=== PATIENT | female | born 1985 | race Caucasian/White ===

== ENCOUNTER 2019-08-22 20:00 | Emergency (ER) | payer OTHER, MEDICAID, SELFPAY ==
[2019-08-22 20:09] VITALS: BP 125/82; PULSE 82; RESP 14; TEMP 36.7; O2SAT 100; BMI 22.6
[2019-08-22 20:39] LABS: Add Manual Diff / Slide Review NO; Basophils Absolute Auto 100 /uL (0-100); Basophils Percent Auto 1.1 % (0-2); Eosinophils Absolute Auto 300 /uL (0-450); Eosinophils Percent Auto 4.5 % (2-4); Hematocrit 37.3 % (36-46); Hemoglobin 12.6 g/dL (12.0-16.0); Lymphocytes Absolute Auto 1300 /uL (1100-4500); Lymphocytes Percent Auto 17.7 % (25-40); Mean Corpuscular HGB Conc 33.9 % (30-36); Mean Corpuscular Hemoglobin 29.7 PG (26-34); Mean Corpuscular Volume 87.6 fL (80-100); Monocytes Absolute Auto 400 /uL (0-900); Monocytes Percent Auto 5.7 % (3-14); Neutrophils Absolute Auto 5100 /uL (1500-7000); Platelet Count 323 X10^3/uL (150-400); Red Blood Cell Count 4.26 X10^6/uL (4.0-5.2); Red Cell Distribution Width 13.1 % (11.6-14.8); White Blood Cell Count 7.2 X10^3/uL (4.5-11.0)
--- NOTE | 2019-08-22 20:48 | ED.HA ---
HPI - Headache General Chief Complaint: Headache Stated Complaint: Severe head ache, vomiting Time Seen by Provider: 08/22/19 20:48 Mode of arrival: Ambulatory History of Present Illness HPI Narrative: 33-year-old woman with bipolar disorder and seizure disorder presents with increased headache with acute onset at approximately 7:00 p.m. tonight. She states that usually she gets headaches only before or after seizures. She describes the headache as a dull continuous ache on the left side of her head She isn't sure if she has actually had any seizures this evening but is wondering if there may have been some of signs seizures. She currently is on 150 mg of lamotrigine in the evening. She does not describe photophobia, nausea, fevers, coughs, chills, chest pain, shortness of breath, diarrhea, vomiting, skin changes or rashes Related Data Home Medications Medication Instructions Recorded Confirmed ibuprofen 200 mg tablet 200 mg PO QID PRN 04/07/18 05/20/18 lamotrigine 150 mg tablet 150 mg PO BID 04/07/18 08/22/19 levothyroxine 75 mcg capsule 75 mcg PO DAILY 04/07/18 08/22/19 lithium carbonate 300 mg tablet 300 mg PO QID tab 04/07/18 08/22/19 trazodone 50 mg tablet 50 mg PO DAILY 04/07/18 08/22/19 Previous Rx's Medication Instructions Recorded norethindrone (contraceptive) 0.35 0.35 mg PO DAILY #112 tab 05/22/18 mg tablet lamotrigine 50 mg PO BID #60 tab 08/22/19 Allergies Allergy/AdvReac Type Severity Reaction Status Date / Time Pertussis Vaccines Allergy Verified 08/22/19 20:17 pseudoephedrine AdvReac Verified 08/22/19 20:17 [From [facility]] Review of Systems Review of Systems Narrative: All systems reviewed and are unremarkable except as noted in HPI and below Patient History Medical History (Updated 08/22/19 @ 23:05 by Elizabeth Dougherty MD) Seizure disorder (Acute) Social History Smoking Status: Never smoker Smoking Status: Never smoker alcohol intake frequency: 0-2 drinks per day Substance Use Type: does not use Exam Narrative Exam Narrative: General: Healthy appearing, in no acute distress. Able to give a complete and coherent history. Well-nourished well-developed HEENT: Moist mucous membranes, normal sclera with reactive pupils, Neck: No JVD, supple Respiratory: Lungs are clear to auscultation, no wheezing no rales no rhonchi. Full and symmetrical air movement Cardiac: Regular rate and rhythm no murmurs no bruits Abdomen: Soft nontender good bowel tones, no flank pain Skin: Warm and dry, no rashes Neurologic: Grossly neurologically intact with no obvious asymmetries or abnormalities. Very brisk reflexes arms patellas with 1 beat of clonus bilaterally both lower extremities Extremities: No trauma, well perfused Psych: Cooperative, appropriate insight and affect Initial Vital Signs Initial Vital Signs: Vital Signs Temperature 98.1 F 08/22/19 20:09 Pulse Rate 82 08/22/19 20:09 Respiratory Rate 14 08/22/19 20:09 Blood Pressure 125/82 08/22/19 20:09 Pulse Oximetry 100 08/22/19 20:09 Course Orders Ordered: ED Orders 08/22/19 20:13 EKG-12 Lead Routine 08/22/19 20:27 Basic Metabolic Panel Stat Complete Blood Count AUTO DIFF Stat Influenza A & B (PCR) Stat Discontinued Medications Sodium Chloride (Normal Saline 0.9%) 1,000 mls @ 1,000 mls/hr IV BOLUS ONE Stop: 08/22/19 22:07 Last Infusion: 08/22/19 22:37 Dose: 0 mls/hr Documented by: Admin: 08/22/19 21:22 Dose: 1,000 mls/hr Documented by: SHANTELLE Ketorolac Tromethamine (Toradol) 15 mg IV NOW ONE Stop: 08/22/19 21:09 Last Admin: 08/22/19 21:22 Dose: 15 mg Documented by: SHANTELLE Phenobarbital (Phenobarbital) 65 mg IV NOW ONE Stop: 08/22/19 21:09 Last Admin: 08/22/19 21:22 Dose: 65 mg Documented by: SHANTELLE Vital Signs Vital signs: Vital Signs - 8 hr 08/22/19 20:09 08/22/19 21:00 08/22/19 22:01 Temperature 98.1 F Pulse Rate 82 73 76 Respiratory Rate 14 15 14 Blood Pressure 125/82 Blood Pressure [Right Arm] 125/83 125/76 Pulse Oximetry 100 100 100 08/22/19 22:27 08/22/19 22:40 Temperature Pulse Rate 71 77 Respiratory Rate 13 24 Blood Pressure Blood Pressure [Right Arm] 124/72 120/69 Pulse Oximetry 100 100 MDM - Headache Differential Diagnosis Differential diagnosis: Likely migraine, tension headache and other Medical Records Attestation: I reviewed the patient's medical records. Lab Data Attestation: I reviewed the patient's lab results. Result diagrams: 08/22/19 20:27 08/22/19 20:27 Labs: Lab Results 08/22/19 08/22/19 08/22/19 Range/Units 20:27 20:27 20:27 WBC 7.2 (4.5-11.0) X10^3/uL RBC 4.26 (4.0-5.2) X10^6/uL Hgb 12.6 (12.0-16.0) g/dL Hct 37.3 (36-46) % MCV 87.6 (80-100) fL MCH 29.7 (26-34) PG MCHC 33.9 (30-36) % RDW 13.1 (11.6-14.8) % Plt Count 323 (150-400) X10^3/uL Neut % (Auto) 71.0 (50-75) % Lymph % (Auto) 17.7 L (25-40) % [place] % (Auto) 5.7 (3-14) % Eos % (Auto) 4.5 H (2-4) % Baso % (Auto) 1.1 (0-2) % Neut # (Auto) 5100 (2316-7776) /uL Lymph # (Auto) 1300 (8666-2634) /uL [place] # (Auto) 400 (0-900) /uL Eos # (Auto) 300 (0-450) /uL Baso # (Auto) 100 (0-100) /uL Sodium 141 (137-145) mmol/L Potassium 3.6 (3.4-5.1) mmol/L Chloride 107 (98-107) mmol/L Carbon Dioxide 24 (22-32) mmol/L BUN 12 (7-17) mg/dL Creatinine 0.90 (0.52-1.04) mg/dL Estimated GFR > 60.0 (>60) mL/min BUN/Creatinine Ratio 13.3 (6-22) Glucose 113 H (70-100) mg/dL Calcium 9.7 (8.4-10.2) mg/dL Influenza A (RT-PCR) Flu a negative (NEGATIVE) Influenza B (RT-PCR) Flu b negative (NEGATIVE) ECG Data Attestation: I personally reviewed and interpreted this ECG as follows: Interpretation: Normal sinus rhythm at a rate of 74. Normal axis, normal intervals, no acute ischemia MDM Narrative Medical decision making narrative: Presents with headache that resolved nicely with Toradol as well as phenobarbital. Increasing reflexive in the and possibility of absent seizures over the course of this evening. Will increase her lamotrigine to 200 mg in the evening and have her follow-up with her primary care physician. There is no evidence of meningitis nor acute life-threatening illness. She is safe for home discharge Discharge Plan Departure Patient Disposition: Home Clinical Impression: Seizure disorder Headache Qualifiers: Headache type: unspecified Headache chronicity pattern: acute headache Intractability: not intractable Qualified Code(s): R51 - Headache Instructions: DI for Seizure Disorder -- Adult Activity Restrictions/Additional Instructions: Thank you for coming in today Your lab work was reassuringly normal. Your headache improved with Toradol, phenobarbital and normal saline. you still have very brisk reflexes and I suspect that your headache is related to mild seizure activity. I am going to suggest that we increase your lamotrigine to a total of 200 mg a day. I have given you a prescription for the 50 mg size pills. Please add the 50 mg size pill to your current 150 mg size pills. A prescription has been electronically sent to [facility] in [place] If you're having recurrence symptoms or problems please feel free to return to the emergency department. With a change like this to your baseline medications it's very important that you follow-up with your primary care physician within the next month to make sure that this slight increased dose to lamotrigine is effective and appropriate. I wish you the best. Prescriptions: New lamotrigine 50 mg tablet,disintegrating 50 mg PO BID Qty: 60 RF: 0 No Action norethindrone (contraceptive) [Ortho Micronor] 0.35 mg tablet 0.35 mg PO DAILY Qty: 112 RF: 4 lamotrigine 150 mg tablet 150 mg PO BID RF: 0 trazodone 50 mg tablet 50 mg PO DAILY RF: 0 ibuprofen [IBU-200] 200 mg tablet 200 mg PO QID PRNRF: 0 lithium carbonate 300 mg tablet 300 mg PO QID RF: 0 levothyroxine 75 mcg capsule 75 mcg PO DAILY RF: 0
[2019-08-22 20:49] LABS: BUN Creatinine Ratio 13.3 (6-22); Blood Urea Nitrogen 12 mg/dL (7-17); Calcium 9.7 mg/dL (8.4-10.2); Carbon Dioxide 24 mmol/L (22-32); Chloride 107 mmol/L (98-107); Estimated Glomerular Filt Rate > 60.0 mL/min (>60); Glucose 113 mg/dL (70-100); HEMOLYSIS < 15 (0-50); Potassium 3.6 mmol/L (3.4-5.1); Sodium 141 mmol/L (137-145)
[2019-08-22 21:00] VITALS: BP 125/83; PULSE 73; RESP 15; O2SAT 100
[2019-08-22 21:09] LABS: Influenza A - CEPHEID Flu A NEGATIVE (NEGATIVE); Influenza B - CEPHEID Flu B NEGATIVE (NEGATIVE)
[2019-08-22] MEDS: KETOROLAC 60 MG/2 ML VIAL 15 MG IV (21:22)
[2019-08-22] MEDS: PHENobarbital 65 MG/ML VIAL IV (21:22)
[2019-08-22] MEDS: SODIUM CHLORIDE 0.9% 1,000 ML 1000 ML IV (21:22)
[2019-08-22 22:01] VITALS: BP 125/76; PULSE 76; RESP 14; O2SAT 100
[2019-08-22 22:27] VITALS: BP 124/72; PULSE 71; RESP 13; O2SAT 100
[2019-08-22 22:40] VITALS: BP 120/69; PULSE 77; RESP 24; O2SAT 100
== END 2019-08-22 23:20 | disposition home or self-care (01) ==
PROVIDERS: Emergency Provider Emergency Medicine
DX: G40.909 Epilepsy, unspecified, not intractable, without status epilepticus (principal); R51 Headache
CPT/HCPCS: 36415; 80048; 85025; 87502; 93005; 96361; 96374; 96375; 99284; J1885; J2560

== ENCOUNTER 2019-09-26 19:41 | Emergency (ER) | payer OTHER, MEDICAID, SELFPAY ==
[2019-09-26 19:50] VITALS: BP 135/79; PULSE 70; RESP 14; TEMP 36.9; O2SAT 99; BMI 23.2
[2019-09-26] MEDS: SODIUM CHLORIDE 0.9% 1,000 ML 1000 ML IV (20:49)
[2019-09-26] MEDS: METOCLOPRAMIDE 10 MG/2 ML INJ IV (20:49)
[2019-09-26] MEDS: diphenhydrAMINE 50 MG/ML VIAL 25 MG IV (20:49)
[2019-09-26] MEDS: KETOROLAC 60 MG/2 ML VIAL 30 MG IV (20:49)
--- NOTE | 2019-09-26 20:56 | ED.HA ---
HPI - Headache <ANAM Petersen - Last Filed: 09/27/19 00:12> General Chief Complaint: Headache Stated Complaint: feels like she is about to have a seizure Time Seen by Provider: 09/26/19 19:45 Mode of arrival: Ambulatory Limitations: no limitations History of Present Illness HPI Narrative: This is a 34-year-old female, nonsmoker, who presents to ED with father with chief complain of I am about to have a seizure or just had one. Patient reports her symptoms as nausea, headache, difficulty focusing mentally which she started about at 3:45 p.m.. Patient's seizure trigger is usually a stress but it has not been to bed. Patient currently takes lamotrigine 150 mg twice a day, lithium 1200 mg q.p.m. patient states she has been compliant with her medications and finally has an approved referral to neurologist at [facility] and is in process of making a phone call to make an appointment. Patient denies fever, chills, nausea, vomiting, recent illness or cold symptoms. Patient reports last big seizure activity was on 08/21/2019 and she had similar symptoms such as headache, nausea, light sensitivity, phonophobia. 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 Related Data Home Medications Medication Instructions Recorded Confirmed ibuprofen 200 mg tablet 200 mg PO QID PRN 04/07/18 05/20/18 lamotrigine 150 mg tablet 150 mg PO BID 04/07/18 08/22/19 levothyroxine 75 mcg capsule 75 mcg PO DAILY 04/07/18 08/22/19 lithium carbonate 300 mg tablet 300 mg PO QID tab 04/07/18 08/22/19 trazodone 50 mg tablet 50 mg PO DAILY 04/07/18 08/22/19 Previous Rx's Medication Instructions Recorded norethindrone (contraceptive) 0.35 0.35 mg PO DAILY #112 tab 05/22/18 mg tablet lamotrigine 50 mg PO BID #60 tab 08/22/19 Allergies Allergy/AdvReac Type Severity Reaction Status Date / Time Pertussis Vaccines Allergy Verified 08/22/19 20:17 metoclopramide [From Reglan] AdvReac Shakiness Verified 09/26/19 21:18 pseudoephedrine AdvReac Verified 08/22/19 20:17 [From [facility]] Review of Systems <Liam RitchieANAM Miller - Last Filed: 09/27/19 00:12> Review of Systems Narrative: General: Denies fever, chills, fatigue, malaise, sweats. HEENT: Denies sinus pain, ear pain, sore throat, difficulty swallowing, dizziness. Respiratory: Denies dyspnea, cough, wheezing, hemoptysis, sputum. Cardiovascular: Denies chest pain, palpitations, orthopnea, edema. Gastrointestinal: Denies nausea, vomiting, abdominal pain, diarrhea, constipation, melena. : Denies dysuria, frequency, incontinence, hematuria, urinary retention. Musculoskeletal: Denies weakness, joint pain or bony pain. Skin: Denies rash, skin lesions, or other. Neurologic: See HPI Psychiatric: No concerning psychosocial issues. 12-point review of systems is negative except for those stated above. Patient History <Liam RitchieJosephANAM Rhodes - Last Filed: 09/27/19 00:12> Medical History (Updated 09/26/19 @ 22:20 by Jillian Rodriguez RN) Seizure disorder (Inactive) Surgical History (Updated 09/26/19 @ 21:02 by ANAM Petersen) H/O foot surgery (Acute) H/O: hysterectomy (Acute) Social History Smoking Status: Never smoker Smoking Status: Never smoker alcohol intake frequency: 0-2 drinks per day Substance Use Type: does not use Exam <ANAM Petersen - Last Filed: 09/27/19 00:12> Narrative Exam Narrative: GEN: Alert, oriented x 3, well appearing and nourished, and in no acute distress. Head: Normal cephalic, atraumatic. No scalp or temporal tenderness, palpable mass or rash. EYES: Pupils are equal, round, and reactive to light and accommodation. Extraocular muscles are intact bilaterally. There is no subconjunctival hemorrhage, exudate and sclera non-icteric. ENT: Bilateral auditory canals and tympanic membranes clear. Hearing grossly intact. Nose without bleeding, purulent discharge or deviation. Facial sinuses nontender to palpate. Mucous membrane moist, no mucosal lesion. Throat without erythema, tonsillar hypertrophy or exudate. Uvula in midline, airway patent. Neck: Trachea in midline. No JVD, non-tender without lymphadenopathy. No masses or thyroid megaly. Supple, non-tender and no meningeal signs. CARDIAC: Normal regular rate and rhythm without murmurs, gallops, or rubs. No chest wall tenderness. No peripheral edema, cyanosis or pallor. Capillary refill is less than 2 seconds. RESPIRATORY: Lungs are clear to auscultate bilaterally. No cough, wheezes, rales, or rhonchi. No stridor, respiratory distress, increase work of breathing, or accessary muscle used. ABD: Abdomen soft, nontender and non-distended. No guarding or rebound tenderness to palpate. Bowel sounds are normal in all 4 quadrants. There is no palpable masses or organomegaly. EXT: Full painless ROM of all extremities with no loss of sensation, strength, effusion or edema. SKIN: Warm, dry, normal color for patient. No erythema, lesions or rash over visible areas. BACK: Nontender without deformity or crepitance. No flank tenderness. NEUROLOGICAL: Alert and oriented to place, time and person. Sensation and motor function intact bilaterally. No facial droops, dysphasia. PSYCHIATRIC: Good judgement and reason, without hallucinations, abnormal affect or abnormal behaviors during the examination. Patient is not suicidal. Initial Vital Signs Initial Vital Signs: Vital Signs Temperature 98.5 F 09/26/19 19:50 Pulse Rate 70 09/26/19 19:50 Respiratory Rate 14 09/26/19 19:50 Blood Pressure 135/79 09/26/19 19:50 Pulse Oximetry 99 09/26/19 19:50 <Jefe Saez MD - Last Filed: 09/27/19 06:51> Initial Vital Signs Initial Vital Signs: Vital Signs Temperature 98.5 F 09/26/19 19:50 Pulse Rate 70 09/26/19 19:50 Respiratory Rate 14 09/26/19 19:50 Blood Pressure 135/79 09/26/19 19:50 Pulse Oximetry 99 09/26/19 19:50 Scores <ANAM Petersen - Last Filed: 09/27/19 00:12> GCS [place] coma scale eye opening: Spontaneous Gilda coma scale verbal response: Orientated [place] coma scale motor response: Obey commands [place] coma scale total score: 15 Course <ANAM Petersen - Last Filed: 09/27/19 00:12> Orders Ordered: Discontinued Medications Diphenhydramine HCl (Benadryl) 25 mg IV NOW ONE Stop: 09/26/19 20:07 Last Admin: 09/26/19 20:49 Dose: 25 mg Documented by: INNA Diphenhydramine HCl (Benadryl) 25 mg IV NOW ONE Stop: 09/26/19 21:12 Last Admin: 09/26/19 21:16 Dose: Not Given Documented by: CARLOS Sodium Chloride (Normal Saline 0.9%) 1,000 mls @ 1,000 mls/hr IV BOLUS ONE Stop: 09/26/19 21:05 Last Infusion: 09/26/19 22:19 Dose: 0 mls/hr Documented by: Admin: 09/26/19 20:49 Dose: 1,000 mls/hr Documented by: INNA Ketorolac Tromethamine (Toradol) 30 mg IV NOW ONE Stop: 09/26/19 20:07 Last Admin: 09/26/19 20:49 Dose: 30 mg Documented by: INNA Lorazepam (Ativan) 0.5 mg IV NOW ONE Stop: 09/26/19 21:22 Last Admin: 09/26/19 22:14 Dose: Not Given Documented by: CARLOS Metoclopramide HCl (Reglan) 10 mg IV NOW ONE Stop: 09/26/19 20:07 Last Admin: 09/26/19 20:49 Dose: 10 mg Documented by: INNA Vital Signs Vital signs: Vital Signs - 8 hr 09/26/19 19:50 09/26/19 21:05 09/26/19 21:30 Temperature 98.5 F Pulse Rate 70 94 H 72 Respiratory Rate 14 18 16 Blood Pressure 135/79 Blood Pressure [Left Arm] 122/73 122/73 Pulse Oximetry 99 99 99 <Jefe Saez MD - Last Filed: 09/27/19 06:51> Orders Ordered: Discontinued Medications Diphenhydramine HCl (Benadryl) 25 mg IV NOW ONE Stop: 09/26/19 20:07 Last Admin: 09/26/19 20:49 Dose: 25 mg Documented by: INNA Diphenhydramine HCl (Benadryl) 25 mg IV NOW ONE Stop: 09/26/19 21:12 Last Admin: 09/26/19 21:16 Dose: Not Given Documented by: CARLOS Sodium Chloride (Normal Saline 0.9%) 1,000 mls @ 1,000 mls/hr IV BOLUS ONE Stop: 09/26/19 21:05 Last Infusion: 09/26/19 22:19 Dose: 0 mls/hr Documented by: Admin: 09/26/19 20:49 Dose: 1,000 mls/hr Documented by: INNA Ketorolac Tromethamine (Toradol) 30 mg IV NOW ONE Stop: 09/26/19 20:07 Last Admin: 09/26/19 20:49 Dose: 30 mg Documented by: INNA Lorazepam (Ativan) 0.5 mg IV NOW ONE Stop: 09/26/19 21:22 Last Admin: 09/26/19 22:14 Dose: Not Given Documented by: CARLOS Metoclopramide HCl (Reglan) 10 mg IV NOW ONE Stop: 09/26/19 20:07 Last Admin: 09/26/19 20:49 Dose: 10 mg Documented by: INNA Vital Signs Vital signs: Vital Signs - 8 hr 09/26/19 19:50 09/26/19 21:05 09/26/19 21:30 Temperature 98.5 F Pulse Rate 70 94 H 72 Respiratory Rate 14 18 16 Blood Pressure 135/79 Blood Pressure [Left Arm] 122/73 122/73 Pulse Oximetry 99 99 99 MDM - Headache <ANAM Petersen - Last Filed: 09/27/19 00:12> Differential Diagnosis Differential diagnosis: Likely headache and other (seizure) Medical Records Attestation: I reviewed the patient's medical records. Lab Data Attestation: I reviewed the patient's lab results. Result diagrams: 09/26/19 20:50 09/26/19 20:50 Labs: Lab Results 09/26/19 09/26/19 09/26/19 Range/Units 20:50 20:50 20:50 WBC 8.1 (4.5-11.0) X10^3/uL RBC 4.38 (4.0-5.2) X10^6/uL Hgb 12.9 (12.0-16.0) g/dL Hct 38.2 (36-46) % MCV 87.3 (80-100) fL MCH 29.5 (26-34) PG MCHC 33.8 (30-36) % RDW 12.8 (11.6-14.8) % Plt Count 315 (150-400) X10^3/uL Neut % (Auto) 73.2 (50-75) % Lymph % (Auto) 15.8 L (25-40) % [place] % (Auto) 5.5 (3-14) % Eos % (Auto) 4.5 H (2-4) % Baso % (Auto) 1.0 (0-2) % Neut # (Auto) 5900 (1895-8711) /uL Lymph # (Auto) 1300 (1026-9855) /uL [place] # (Auto) 400 (0-900) /uL Eos # (Auto) 400 (0-450) /uL Baso # (Auto) 100 (0-100) /uL Sodium 141 (137-145) mmol/L Potassium 4.1 (3.4-5.1) mmol/L Chloride 104 (98-107) mmol/L Carbon Dioxide 26 (22-32) mmol/L BUN 13 (7-17) mg/dL Creatinine 1.00 (0.52-1.04) mg/dL Estimated GFR > 60.0 (>60) mL/min BUN/Creatinine Ratio 13.0 (6-22) Glucose 127 H (70-100) mg/dL Calcium 9.9 (8.4-10.2) mg/dL Magnesium 2.2 (1.6-2.3) mg/dL Prolactin 18.2 (3.0-18.6) ng/mL Ethyl Alcohol < 10 ( - 10) mg/dL [facility] Narrative Medical decision making narrative: This patient has a long history of petite Mar seizure since just older than 3 year old. Patient is here today with headache, nausea, photophobia, difficulty with focusing which is similar to her recent seizure activity on 08/21/2019. Patient's usual trigger for seizure is stress but patient states it has been manageable. Patient is currently taking her seizure medication as instructed lamotrigine 150 mg b.i.d. and lithium 1200 mg q.p.m. for bipolar. There was no leukocytosis today, glucose 127 mg/dL, and normal prolactic of 18.2 (3.0-18.6). Dad witnessed no abnormality today. Her headache was treated with IV fluid, Benadryl 25 mg, Toradol 30mg, and Regland 10 mg. However, shortly after the medication administration, patient had Tardive Dyskinesia, having involuntary tremors to her bilateral legs. Patient denies other symptoms such as short of breath, breathing difficulty, or anxiety. There was no tremors to her face or neck. Additional Benadryl 25 mg were provided and her symptoms resolved in about 10 minutes. Ativan was ordered but held at that time. Patient reports her headache also resolved at this time and feel better. Reglan has been added to the allergy list. Patient advised to follow-up with neurologist as she planned tomorrow by calling the clinic. Return precautions were discussed with the patient and patient verbalized understanding and agrees with the treatment plan. <Jefe Saez MD - Last Filed: 09/27/19 06:51> Lab Data Labs: Lab Results 09/26/19 09/26/19 09/26/19 Range/Units 20:50 20:50 20:50 WBC 8.1 (4.5-11.0) X10^3/uL RBC 4.38 (4.0-5.2) X10^6/uL Hgb 12.9 (12.0-16.0) g/dL Hct 38.2 (36-46) % MCV 87.3 (80-100) fL MCH 29.5 (26-34) PG MCHC 33.8 (30-36) % RDW 12.8 (11.6-14.8) % Plt Count 315 (150-400) X10^3/uL Neut % (Auto) 73.2 (50-75) % Lymph % (Auto) 15.8 L (25-40) % [place] % (Auto) 5.5 (3-14) % Eos % (Auto) 4.5 H (2-4) % Baso % (Auto) 1.0 (0-2) % Neut # (Auto) 5900 (9812-0811) /uL Lymph # (Auto) 1300 (7587-0960) /uL [place] # (Auto) 400 (0-900) /uL Eos # (Auto) 400 (0-450) /uL Baso # (Auto) 100 (0-100) /uL Sodium 141 (137-145) mmol/L Potassium 4.1 (3.4-5.1) mmol/L Chloride 104 (98-107) mmol/L Carbon Dioxide 26 (22-32) mmol/L BUN 13 (7-17) mg/dL Creatinine 1.00 (0.52-1.04) mg/dL Estimated GFR > 60.0 (>60) mL/min BUN/Creatinine Ratio 13.0 (6-22) Glucose 127 H (70-100) mg/dL Calcium 9.9 (8.4-10.2) mg/dL Magnesium 2.2 (1.6-2.3) mg/dL Prolactin 18.2 (3.0-18.6) ng/mL Ethyl Alcohol < 10 ( - 10) mg/dL Discharge Plan Departure Patient Disposition: Home Clinical Impression: History of absence seizures, Bipolar I disorder Headache Qualifiers: Headache type: unspecified Headache chronicity pattern: unspecified pattern Intractability: not intractable Qualified Code(s): R51 - Headache Discharge Date/Time: 09/26/19 22:20 Instructions: DI for Headache Activity Restrictions/Additional Instructions: You have been diagnosed with [history of petite Mar seizure and headache. Blood tests were unremarkable today. You were treated for headache with IV fluid, IV Toradol, Benadryl and Reglan. However, the you had Tardive dyskinesia for a brief period which stopped after the additional dose of Benadryl ]. What to do: *Take your medications as directed. Please continue with her medication. *Follow up with your primary care provider in 2-3 days, call for an appointment. Let them know you were seen in the ED and that we asked you to be seen in follow up. *Return to ED if you have any new, worsening, or concerning symptoms, such as [fever, chest pain, breathing difficulty, unable to tolerate fluids, recurring seizure, or any acute concerns]. Prescriptions: No Action norethindrone (contraceptive) [Ortho Micronor] 0.35 mg tablet 0.35 mg PO DAILY Qty: 112 RF: 4 lamotrigine 150 mg tablet 150 mg PO BID RF: 0 trazodone 50 mg tablet 50 mg PO DAILY RF: 0 ibuprofen [IBU-200] 200 mg tablet 200 mg PO QID PRNRF: 0 lithium carbonate 300 mg tablet 300 mg PO QID RF: 0 levothyroxine 75 mcg capsule 75 mcg PO DAILY RF: 0 lamotrigine 50 mg tablet,disintegrating 50 mg PO BID Qty: 60 RF: 0 Referrals: Catalino Acevedo DO [Primary Care Provider] -
[2019-09-26 21:05] VITALS: BP 122/73; PULSE 94; RESP 18; O2SAT 99
[2019-09-26] MEDS: diphenhydrAMINE 50 MG/ML VIAL (21:12)
[2019-09-26 21:14] LABS: Add Manual Diff / Slide Review NO; Basophils Absolute Auto 100 /uL (0-100); Eosinophils Absolute Auto 400 /uL (0-450); Eosinophils Percent Auto 4.5 % (2-4); Hematocrit 38.2 % (36-46); Hemoglobin 12.9 g/dL (12.0-16.0); Lymphocytes Absolute Auto 1300 /uL (1100-4500); Lymphocytes Percent Auto 15.8 % (25-40); Mean Corpuscular HGB Conc 33.8 % (30-36); Mean Corpuscular Hemoglobin 29.5 PG (26-34); Mean Corpuscular Volume 87.3 fL (80-100); Monocytes Absolute Auto 400 /uL (0-900); Monocytes Percent Auto 5.5 % (3-14); Neutrophils Absolute Auto 5900 /uL (1500-7000); Neutrophils Percent Auto 73.2 % (50-75); Platelet Count 315 X10^3/uL (150-400); Red Blood Cell Count 4.38 X10^6/uL (4.0-5.2); Red Cell Distribution Width 12.8 % (11.6-14.8); White Blood Cell Count 8.1 X10^3/uL (4.5-11.0)
[2019-09-26 21:20] LABS: Ethanol (ETOH) < 10 mg/dL
[2019-09-26 21:21] LABS: Blood Urea Nitrogen 13 mg/dL (7-17); Calcium 9.9 mg/dL (8.4-10.2); Carbon Dioxide 26 mmol/L (22-32); Chloride 104 mmol/L (98-107); Estimated Glomerular Filt Rate > 60.0 mL/min (>60); Glucose 127 mg/dL (70-100); HEMOLYSIS < 15 (0-50); Magnesium 2.2 mg/dL (1.6-2.3); Potassium 4.1 mmol/L (3.4-5.1); Sodium 141 mmol/L (137-145)
[2019-09-26 21:30] VITALS: BP 122/73; PULSE 72; RESP 16; O2SAT 99
[2019-09-26 21:37] LABS: Prolactin 18.2 ng/mL (3.0-18.6)
== END 2019-09-26 22:20 | disposition home or self-care (01) ==
PROVIDERS: Emergency Provider Nurse Practitioner Family; PCP Family Medicine
DX: R51 Headache (principal); F31.9 Bipolar disorder, unspecified; Z86.69 Personal history of other diseases of the nervous system and sense organs
CPT/HCPCS: 36415; 80048; 80320; 83735; 84146; 85025; 96361; 96374; 96375; 99284; J1200; J1885; J2765

== ENCOUNTER → 2022-03-31 13:19 | Outpatient (CLI) | payer OTHER, SELFPAY ==
[2022-03-31 13:39] LABS: COVID19 -Nasal RAPID Negative (Negative)
== END ==
PROVIDERS: PCP Family Medicine; Visit Provider Physician Assistant
DX: Z20.822 Contact with and (suspected) exposure to COVID-19 (principal)
CPT/HCPCS: 87635

== ENCOUNTER 2025-02-25 15:59 | Emergency (ER) | payer OTHER, SELFPAY ==
[2025-02-25 16:05] VITALS: BP 123/81; PULSE 83; RESP 17; TEMP 36.6; O2SAT 98; BMI 25.0
[2025-02-25 18:00] LABS: Add Manual Diff / Slide Review NO; Hematocrit 39.5 % (36-46); Hemoglobin 13.2 g/dL (12.0-16.0); Lymphocytes Absolute Auto 600 /uL (1100-4500); Mean Corpuscular HGB Conc 33.4 % (30-36); Mean Corpuscular Hemoglobin 29.8 PG (26-34); Mean Corpuscular Volume 89.0 fL (80-100); Platelet Count 334 X10^3/uL (150-400)
[2025-02-25 18:36] LABS: Alanine Aminotransferase 16 IU/L (<35); Albumin 5.1 g/dL (3.5-5.0); Albumin Globulin Ratio 1.3 (1.0-2.8); Alkaline Phosphatase 58 U/L (38-126); Blood Urea Nitrogen 12 mg/dL (7-17); Calcium 9.8 mg/dL (8.4-10.2); Carbon Dioxide 26 mmol/L (22-32); Chloride 107 mmol/L (98-107); Estimated Glomerular Filt Rate 59 mL/min (>60); Globulin 3.8 g/dL (1.7-4.1); Glucose 94 mg/dL (70-99); HEMOLYSIS 17 (0-50); Lipase 71 U/L (23-300); Potassium 4.2 mmol/L (3.4-5.1); Sodium 142 mmol/L (137-145); Total Protein 8.9 g/dL (6.3-8.2)
[2025-02-25 19:06] LABS: Culture Indicated Urine Specimen Cultured
--- NOTE | 2025-02-25 19:28 | ED.NAVMDI ---
HPI - Nausea/Vomiting/Diarrhea General Chief complaint: Nausea/Vomiting/Diarrhea Stated complaint: shaking, history of epilepsy Time Seen by Provider: 02/25/25 17:26 Source: patient Mode of arrival: Ambulatory History of Present Illness HPI Narrative: 39-year-old female was feeling well this morning, ate a hot dog for lunch today that was 1 of 2 left in a package open last week, afterwards about 1:30 p.m. felt nauseated, had emesis twice nonbloody. No diarrhea. No significant abdominal pain or cramping. Denies recent cough, chest pain, shortness of breath. Denies painful frequent urination. No history of stomach ulcers, gallbladder problems. Prior remote , otherwise no other abdominopelvic surgeries. Feels better now without specific treatment. No other persons had the same food item. Patient concerned she might have had food poisoning from the old pack a chop dog. MD complaint: nausea Related Data Home Medications ?Medication ?Instructions ?Recorded ?Confirmed ibuprofen 200 mg tablet (IBU-200) 200 mg PO QID PRN 04/07/18 04/04/22 lamotrigine 150 mg tablet 150 mg PO BID 04/07/18 04/04/22 levothyroxine 75 mcg capsule 75 mcg PO DAILY 04/07/18 04/04/22 lithium carbonate 300 mg tablet 300 mg PO QID 04/07/18 04/04/22 trazodone 50 mg tablet 50 mg PO DAILY 04/07/18 04/04/22 Previous Rx's ?Medication ?Instructions ?Recorded norethindrone (contraceptive) 0.35 0.35 mg PO DAILY #112 tabs 05/22/18 mg tablet (Ortho Micronor) lamotrigine 50 mg disintegrating 50 mg PO BID #60 tabs 08/22/19 tablet benzonatate 100 mg capsule 100 mg PO BEDTIME #20 caps 03/01/21 fluticasone propionate 50 1 spray intranasal BID PRN allergy 03/01/21 mcg/actuation nasal symptoms #16 grams spray,suspension Allergies Allergy/AdvReac Type Severity Reaction Status Date / Time pollen extracts Allergy Unknown Verified 02/25/25 16:05 Pertussis Vaccines Allergy Verified 02/25/25 16:05 metoclopramide (From Reglan) AdvReac Shakiness Verified 02/25/25 16:05 pseudoephedrine (From AdvReac Verified 02/25/25 16:05 Sudafed) Patient History Medical History Seizure disorder Surgical History H/O foot surgery H/O: hysterectomy Social History Smoking Status: Never smoker Smoking Status: Never smoker alcohol intake frequency: 0-2 drinks per day Exam Narrative Exam Narrative: GENERAL: Well-developed patient, in mild distress. HEAD: Atraumatic. Normocephalic. EYES: Pupils equal round and reactive. Extraocular motions intact. No scleral icterus. No injection or drainage. ENT: Nose without bleeding, purulent drainage. Throat without erythema, tonsillar hypertrophy or exudate. Airway patent. NECK: Trachea midline. Non tender CARDIOVASCULAR: Regular rate and rhythm without murmurs, gallops, or rubs. RESPIRATORY: Clear to auscultation. Breath sounds equal bilaterally. No wheezes, rales, or rhonchi. GASTROINTESTINAL: Abdomen soft, non-tender, nondistended. EXTREMITIES: No edema or joint tenderness. BACK: Nontender without deformity or crepitance. No flank tenderness. NEURO: AOx3. Motor functions grossly nonfocal. SKIN: No rash or erythema of visible areas Initial Vital Signs Initial Vital Signs: Vital Signs Temperature 97.9 F 02/25/25 16:05 Pulse Rate 83 02/25/25 16:05 Respiratory Rate 17 02/25/25 16:05 Blood Pressure 123/81 02/25/25 16:05 Pulse Oximetry 98 02/25/25 16:05 Oxygen Delivery Method Room Air 02/25/25 16:05 Course Orders Ordered: Discontinued Medications Ondansetron HCl (Ondansetron 4 Mg Odt Prepack) 1 bottle MISC DIRECTED ONE Stop: 02/25/25 19:36 Last Admin: 02/25/25 19:45 Dose: 1 bottle Documented By: CHAKA Vital Signs Vital signs: Vital Signs - 8 hr 02/25/25 16:05 Temperature 97.9 F Pulse Rate 83 Respiratory Rate 17 Blood Pressure 123/81 Pulse Oximetry 98 Oxygen Delivery Method Room Air MDM - Nausea/Vomiting/Diarrhea Lab Data Attestation: I reviewed the patient's lab results. Lab results narrative: White blood cell count 17485, hemoglobin 13.2, platelets adequate. Glucose normal. BUN 12 with creatinine 1.21 noted. Normal serum CO2 on electrolytes. Normal liver functions and lipase. Urinalysis showed some bacteria without inflammatory cells, urine culture triggered. 02/25/25 17:49 02/25/25 17:40 Labs: Lab Results 02/25/25 02/25/25 02/25/25 Range/Units 17:40 17:49 18:05 WBC 11.5 H (4.5-11.0) X10^3/uL RBC 4.44 (4.0-5.2) X10^6/uL Hgb 13.2 (12.0-16.0) g/dL Hct 39.5 (36-46) % MCV 89.0 (80-100) fL MCH 29.8 (26-34) PG MCHC 33.4 (30-36) % RDW 13.0 (11.6-14.8) % Plt Count 334 (150-400) X10^3/uL Neut % (Auto) 90.6 H (50-75) % Lymph % (Auto) 5.3 L (25-40) % [place] % (Auto) 2.4 L (3-14) % Eos % (Auto) 1.1 L (2-4) % Baso % (Auto) 0.6 (0-2) % Neut # (Auto) 92113 H (4743-4702) /uL Lymph # (Auto) 600 L (9000-8666) /uL [place] # (Auto) 300 (0-900) /uL Eos # (Auto) 100 (0-450) /uL Baso # (Auto) 100 (0-100) /uL Sodium 142 (137-145) mmol/L Potassium 4.2 (3.4-5.1) mmol/L Chloride 107 (98-107) mmol/L Carbon Dioxide 26 (22-32) mmol/L BUN 12 (7-17) mg/dL Creatinine 1.21 H (0.52-1.04) mg/dL Estimated GFR 59 L (>60) mL/min BUN/Creatinine Ratio 9.9 (6-22) Glucose 94 (70-99) mg/dL Calcium 9.8 (8.4-10.2) mg/dL Total Bilirubin 0.7 (0.2-1.3) mg/dL AST 29 (14-36) IU/L ALT 16 (<35) IU/L Alkaline Phosphatase 58 (38-126) U/L Total Protein 8.9 H (6.3-8.2) g/dL Albumin 5.1 H (3.5-5.0) g/dL Globulin 3.8 (1.7-4.1) g/dL Albumin/Globulin Ratio 1.3 (1.0-2.8) Lipase 71 (23-300) U/L Urine RBC None seen (0-5/HPF) Urine WBC 0-1/hpf (0-5/HPF) Ur Squamous Epith Cells None seen (0-5/HPF) Ur Transition Epith Cell 0-1/hpf (0-5/HPF) Urine Bacteria Occasional (0-1) (None) Ur Culture Indicated? Specimen cultured Vol Urine Centrifuged 10ml (spun) Point of Care Testing Test Results Negative Urine Dip Bedside Urine Glucose Negative Bedside Urine Bilirubin - Negative Bedside Urine Ketone - Negative Urine Specific [place] 1.005 Bedside Urine Occult Blood - Negative Bedside Urine pH 7.5 Bedside Urine Protein - Negative Bedside Urine Urobilinogen - Negative Bedside Urine Nitrite - Negative Bedside Urine Leukocytes +/- 15 Esterase MDM Narrative Medical decision making narrative: 39-year-old female with nausea and vomiting after eating residual 1 of 2 hot dogs and no open package for the last week. DX consider food poisoning from old hot dog in package, versus gastritis, enteritis, colitis, other. Subsequent nausea and vomiting nonbloody. Feels better now. Afebrile, sirs screen negative. Screening labs showed mild leukocytosis 11,500. Bacteriuria without inflammatory cells, no symptoms currently of dysuria, urine culture pending, patient would like to hold off on antibiotics pending urine culture results. Feels better, wants to go home. Home pack ondansetron. Discharged home with family. Discharge Plan Departure Patient Disposition: Home Clinical Impression: Nausea and vomiting Activity Restrictions/Additional Instructions: Nausea and vomiting nonbloody this afternoon, after eating 1 of 2 hot dogs left in package that was open last week, no funny taste at the time of eating, but afterwards had onset of nausea and 2 episodes of throwing up. Symptoms seemed to be resolved now. No fever on triage. Abdominal exam unremarkable. Screening labs largely unremarkable. Urinalysis had ?occasional? bacteria only, but was abnormal enough to be sent for urine culture. You are not have any current urine infection like symptoms, we discussed options, we will hold on antibiotics for now and await results of your urine culture. Take Tylenol and or Motrin as needed for any discomfort. We gave home pack of ondansetron dissolvable oral tablets, to use if you have any further recurrence episodes of nausea or vomiting. It might have been as he suspected, perhaps food poisoning from the old package hot dog. Please discard and not eat the other remaining hot dog in the package. Return if any change worsening symptoms or any concerns. Prescriptions: No Action fluticasone propionate 50 mcg/actuation spray,suspension 1 spray intranasal BID PRN (Reason: allergy symptoms) Qty: 16 0RF Rx Instructions: administer into each nostril benzonatate 100 mg capsule 100 mg PO BEDTIME Qty: 20 0RF norethindrone (contraceptive) [Ortho Micronor] 0.35 mg tablet 0.35 mg PO DAILY Qty: 112 4RF Rx Instructions: Take one tablet by mouth continuously, skipping placebo week and starting a new pack lamotrigine 150 mg tablet 150 mg PO BID trazodone 50 mg tablet 50 mg PO DAILY ibuprofen [IBU-200] 200 mg tablet 200 mg PO QID PRN lithium carbonate 300 mg tablet 300 mg PO QID levothyroxine 75 mcg capsule 75 mcg PO DAILY lamotrigine 50 mg tablet,disintegrating 50 mg PO BID Qty: 60 0RF Rx Instructions: Add to your 150 mg tablets to equal 200 mg b.i.d. Referrals: Catalino Acevedo DO [Primary Care Provider, Family Practice] Stand Alone Forms: Patient Portal/API
[2025-02-25] MEDS: ONDANSETRON 4 MG ODT PREPACK 1 BOTTLE MISC (19:45)
== END 2025-02-25 19:53 | disposition home or self-care (01) ==
PROVIDERS: Emergency Medicine; Emergency Provider Emergency Medicine; PCP Family Medicine
DX: R11.2 Nausea with vomiting, unspecified (principal)
CPT/HCPCS: 36415; 80053; 81003; 81015; 81025; 83690; 85025; 87086; 99283